=== PATIENT | female | born 1970 | race Caucasian/White ===

== ENCOUNTER → 2020-08-02 | Emergency (ER) | payer MEDICARE ==
[~2020-08-02] VITALS: Ht 165.2 cm; Wt 77.3 kg
[~2020-08-02] MED LIST: AMBIEN 5MG TABLE5 MG PO; KLONOPIN 1MG1 MG PO; LEXAPRO 5MG5 MG PO; MIRAPEX ER3 MG PO; PRILOSEC 20MG20 MG PO
[2020-08-02 14:05] VITALS: BP 121/70; PULSE 85; TEMP 97.6
== END ==
LOC: COL.ER 13:50
DX: M25.561 Pain in right knee (principal); M79.644 Pain in right finger(s); F41.9 Anxiety disorder, unspecified; K21.9 Gastro-esophageal reflux disease without esophagitis; F17.200 Nicotine dependence, unspecified, uncomplicated; Z88.0 Allergy status to penicillin

== ENCOUNTER 2020-11-09 08:44 | Emergency (ER) | payer MEDICARE ==
[~2020-11-09] VITALS: Ht 167.6 cm; Wt 77.3 kg
[2020-11-09 08:48] VITALS: BP 147/84; TEMP 98.1
[2020-11-09] MEDS ORDERED: LAMICTAL200 MG PO ×2 (09:00→09:28)
[2020-11-09] MEDS ORDERED: RISPERDAL2 MG PO ×2 (09:00→09:28)
[2020-11-09 09:38] VITALS: PULSE 64
== END 2020-11-09 09:38 | disposition home or self-care (01) ==
LOC: COL.ER 08:44
DX: F31.9 Bipolar disorder, unspecified (principal); Z88.0 Allergy status to penicillin
CPT/HCPCS: J1885

== ENCOUNTER 2020-11-22 12:34 | Emergency (ER) | payer MEDICARE ==
[~2020-11-22] VITALS: Ht 167.6 cm; Wt 73.6 kg
[~2020-11-22 12:34] MED LIST changes: +LAMICTAL150 MG PO; +LAMICTAL200 MG PO; -LEXAPRO 5MG5 MG PO; +LEXAPRO20 MG PO; +RISPERDAL2 MG PO
[2020-11-22 12:47] VITALS: BP 126/88; TEMP 98.3
[2020-11-22 14:41] LABS: BASO # 0.1 (0.0-0.2); BASO % 0.8 % (0.0-2.0); EOS # 0.1 (0.0-0.7); EOS % 1.1 % (0-4.0); GRAN # 3.1 (1.4-6.5); GRAN % 50.5 % (42.2-75.2); HEMOGLOBIN 10.9 g/dl (12.5-16.0); LYMPH # 2.4 (1.2-3.4); LYMPH % 38.7 % (20.0-51.0); MEAN CELL VOLUME 74 fl (80.0-100.0); MEAN CORPUSCULAR HEMOGLOBIN 22 pg (27.0-31.0); MEAN CORPUSCULAR HGB CONC 30 g/dl (33.0-37.0); MEAN PLATELET VOLUME 9.7 fl (7.4-10.4); MONO # 0.5 (0.1-0.6); MONO % 8.6 % (1.7-9.3); PLATELET COUNT 304 K/mm3 (130-400)
[2020-11-22 14:43] LABS: HEMATOCRIT 36.4 % (37.0-47.0)
[2020-11-22 14:53] LABS: ALANINE AMINOTRANSFERASE 19 U/L (4-34); ALBUMIN 4.4 gm/dL (3.5-5.0); ALKALINE PHOSPHATASE 84 U/L (50-136); ANION GAP 4 mmol/L (7-16); AST,SGOT 34 U/L (15-37); BILIRUBIN,TOTAL 0.3 mg/dL (0.0-1.0); BLOOD UREA NITROGEN 7 mg/dL (7-17); CALCIUM 9.4 mg/dL (8.4-10.2); CARBON DIOXIDE 29 mmol/L (22-30); CHLORIDE 106 mmol/L (98-107); CREATININE, serum 0.64 (0.52-1.25); GLUCOSE 83 mg/dL (74-106); LIPASE 102 U/L (23-300); POTASSIUM 4.8 mmol/L (3.4-5.0); SODIUM 139 mmol/L (137-145); TOTAL PROTEIN 7.4 gm/dL (6.4-8.2)
[2020-11-22 15:06] LABS: TROPONIN-I < 0.012 ng/mL (0.000-0.035)
[2020-11-22 16:20] LABS: COLLECTION METHOD CLEAN CATCH
[2020-11-22 16:28] LABS: PH 7 (5-8); SQUAMOUS EPITHELIAL None Seen /hpf; URINE APPEARANCE Clear; URINE BACTERIA Rare /hpf; URINE BILIRUBIN Negative (NEGATIVE); URINE BLOOD Negative (NEGATIVE); URINE COLOR Yellow; URINE GLUCOSE Negative (NEGATIVE); URINE KETONE Negative (NEGATIVE); URINE LEUKOCYTE ESTERASE Negative (NEGATIVE); URINE NITRATE Negative (NEGATIVE); URINE PROTEIN(semi-quant) Negative (NEGATIVE); URINE RBC 0-2 /hpf; URINE UROBILINOGEN Negative (NEGATIVE)
[2020-11-22 16:47] VITALS: PULSE 93
[2021-01-13] MEDS ORDERED: RESTORIL 1515 MG/CAP PO (15:43)
[2021-01-13] MEDS ORDERED: FERRO-TIME325 MG PO (15:44)
== END 2020-11-22 16:48 | disposition home or self-care (01) ==
LOC: COL.ER 12:34
PROVIDERS: Emergency Medicine
DX: E16.2 Hypoglycemia, unspecified (principal); F32.9 Major depressive disorder, single episode, unspecified; F17.200 Nicotine dependence, unspecified, uncomplicated; Z20.822 Contact with and (suspected) exposure to COVID-19; Z32.02 Encounter for pregnancy test, result negative; Z90.710 Acquired absence of both cervix and uterus; Z90.49 Acquired absence of other specified parts of digestive tract; Z88.0 Allergy status to penicillin

== ENCOUNTER 2021-01-13 17:20 | Emergency (ER) | payer MEDICARE ==
[~2021-01-13] VITALS: Ht 165.1 cm; Wt 74.5 kg
[~2021-01-13 17:20] MED LIST changes: +FERRO-TIME325 MG PO; +RESTORIL 1515 MG/CAP PO
[2021-01-13 17:23] VITALS: TEMP 97.8
[2021-01-13 18:08] LABS: BASO # 0.1 (0.0-0.2); BASO % 0.4 % (0.0-2.0); EOS # 0.2 (0.0-0.7); EOS % 1.1 % (0-4.0); GRAN # 9.5 (1.4-6.5); GRAN % 72.5 % (42.2-75.2); HEMOGLOBIN 15.6 g/dl (12.5-16.0); LYMPH # 2.6 (1.2-3.4); LYMPH % 20.1 % (20.0-51.0); MEAN CELL VOLUME 79 fl (80.0-100.0); MEAN CORPUSCULAR HEMOGLOBIN 22 pg (27.0-31.0); MEAN CORPUSCULAR HGB CONC 28 g/dl (33.0-37.0); MONO # 0.7 (0.1-0.6); MONO % 5.4 % (1.7-9.3); PLATELET COUNT 362 K/mm3 (130-400); RED BLOOD COUNT 7.06 M/mm3 (4.10-5.30); REDCELL DISTRIBUTION WIDTH-CV 20.4 % (11.5-14.5)
[2021-01-13 18:09] LABS: HEMATOCRIT 55.8 % (37.0-47.0)
[2021-01-13 18:19] LABS: CALCIUM 9.7 mg/dL (8.4-10.2); CREATININE, serum 0.85 (0.52-1.25)
[2021-01-13 18:47] VITALS: BP 118/80; PULSE 78
== END 2021-01-13 18:57 | disposition home or self-care (01) ==
LOC: COL.ER 17:20
PROVIDERS: Emergency Medicine
DX: R55 Syncope and collapse (principal); F32.9 Major depressive disorder, single episode, unspecified; G47.00 Insomnia, unspecified; F17.210 Nicotine dependence, cigarettes, uncomplicated; Z90.49 Acquired absence of other specified parts of digestive tract; Z90.710 Acquired absence of both cervix and uterus; Z88.0 Allergy status to penicillin

== ENCOUNTER 2021-01-30 14:00 | Outpatient (RCR) | payer MEDICARE ==
[2021-01-13 15:56] VITALS: BP 160/82; PULSE 88; TEMP 98.6
[2021-01-16 13:04] VITALS: BP 123/80; PULSE 89; TEMP 98.2
--- NOTE | 2021-01-16 13:52 | NUR ---
Pt stating immediatley following infusion that she felt much better with this medicine than she did following initial nulecit infusion. IV DC'd with catheter intact. Upon standing and attempting to walk out, pt reports mild lightheadedness. She is asked to remain for observation for an additional 30 mins to ensure she tolerates med well. She agrees, and has no further complaint. She is escorted out at this time, ambulatory to hospital entrance.
[2021-01-23 14:52] VITALS: BP 111/72; PULSE 76; TEMP 98.1
--- NOTE | 2021-01-23 15:18 | NUR ---
Pt tolerates infusion without issue. IV DC'd she abmulates out from dept with steady gait.
[~2021-01-30] VITALS: Ht 167.6 cm; Wt 75.9 kg
[2021-01-30 14:21] VITALS: BP 108/68; PULSE 81; TEMP 98.5
== END 2021-01-30 15:47 ==
LOC: EUO 14:00
DX: Z79.899 Other long term (current) drug therapy (principal)
CPT/HCPCS: J1756; J2916

== ENCOUNTER 2021-02-15 02:31 | Emergency (ER) | payer MEDICARE ==
[2021-02-15 03:07] VITALS: BP 126/77; PULSE 62; TEMP 97.1
[2021-02-15] MEDS ORDERED: MIRAPEX 1MG PO (03:27)
== END 2021-02-15 03:42 | disposition home or self-care (01) ==
LOC: COL.ER 02:31
DX: F31.9 Bipolar disorder, unspecified (principal); G47.00 Insomnia, unspecified; Z76.0 Encounter for issue of repeat prescription

== ENCOUNTER 2021-04-01 23:03 | Emergency (ER) | payer MEDICARE ==
[~2021-04-01] VITALS: Ht 165.1 cm; Wt 71.4 kg
[~2021-04-01 23:03] MED LIST changes: +MIRAPEX 1MG PO
[2021-04-01 23:23] VITALS: TEMP 97.2
[2021-04-02] MEDS ORDERED: NORCO 325 MG-51 TAB PO (00:48)
[2021-04-02] MEDS ORDERED: CRUTCHES MC (01:03)
[2021-04-02 01:30] VITALS: BP 114/70; PULSE 80
== END 2021-04-02 01:30 | disposition home or self-care (01) ==
LOC: COL.ER 23:03
DX: S82.434A Nondisplaced oblique fracture of shaft of right fibula, initial encounter for closed fracture (principal); S80.211A Abrasion, right knee, initial encounter; S80.212A Abrasion, left knee, initial encounter; F99 Mental disorder, not otherwise specified; Z79.899 Other long term (current) drug therapy; W19.XXXA Unspecified fall, initial encounter

== ENCOUNTER 2021-05-16 10:41 | Day surgery (SDC) | payer MEDICARE ==
[~2021-05-16] VITALS: Ht 165.1 cm; Wt 70.0 kg
[~2021-05-16 10:41] MED LIST changes: +CRUTCHES MC; +NORCO 325 MG-51 TAB PO
[2021-05-16] MEDS ORDERED: MELATONIN5 M1 PO (11:29)
[2021-05-16 12:02] VITALS: BP 124/83; PULSE 76; TEMP 97.3
[2021-05-16 13:05] VITALS: BP 120/71; PULSE 68; TEMP 97
--- NOTE | 2021-05-16 13:05 | NUR ---
PATIENT TRANSPORTED PER CART FROM GI SUITE TO BAY 2 ACCOMPANIED BY STANISLAW RN. PATIENT AMBULATED FROM CART TO CHAIR WITH SLOW STEADY GAIT WITH 1 ASSIST. MONITORS APPLIED. VSS ON ROOM AIR. PATIENT TALKS WITH STAFF. 1310 PATIENT GIVEN JUICE AND FLOR CRACKERS.
[2021-05-16 13:15] VITALS: BP 124/72; PULSE 61
--- NOTE | 2021-05-16 13:23 | NUR ---
VSS ON ROOM AIR. PATIENT TOLERATES FOOD AND DRINK WITHOUT PROBLEMS. DOCTOR IN ROOM AND SPEAKS WITH PATIENT. 1340 DISCHARGE INSTRUCTIONS GIVEN VERBAL AND DISCHARGE PACKET PROVIDED TO PATIENT. QUESTIONS ANSWERED AND PATIENT VOICED UNDERSTANDING. PATIENT CHANGES INTO STREET CLOTHES. 1345 PATIENT DISCHARGE PER WHEEL CHAIR ACCOMPANIED BY AMB RN TO PRIVATE VECHILE DRIVEN BY FAMILY.
[2021-05-16 13:30] VITALS: BP 136/78; PULSE 67
== END 2021-05-16 13:45 | disposition home or self-care (01) ==
LOC: SDCO 10:41
DX: R19.5 Other fecal abnormalities (principal); R11.2 Nausea with vomiting, unspecified; K64.1 Second degree hemorrhoids; D64.9 Anemia, unspecified; R63.0 Anorexia; R19.7 Diarrhea, unspecified; K62.5 Hemorrhage of anus and rectum; K21.9 Gastro-esophageal reflux disease without esophagitis; G47.33 Obstructive sleep apnea (adult) (pediatric); F41.9 Anxiety disorder, unspecified; F31.9 Bipolar disorder, unspecified; Z98.84 Bariatric surgery status; Z20.822 Contact with and (suspected) exposure to COVID-19; Z79.899 Other long term (current) drug therapy; Z87.891 Personal history of nicotine dependence; Z90.710 Acquired absence of both cervix and uterus; Z83.3 Family history of diabetes mellitus; Z82.49 Family history of ischemic heart disease and other diseases of the circulatory system
CPT/HCPCS: J2405; J2704; J7030

== ENCOUNTER 2021-07-21 07:57 | Emergency (ER) | payer MEDICARE ==
[~2021-07-21] VITALS: Ht 165.1 cm; Wt 77.3 kg
[~2021-07-21 07:57] MED LIST changes: +MELATONIN5 M1 PO
[2021-07-21 08:10] VITALS: TEMP 97.7
[2021-07-21] MEDS ORDERED: PERCOCET 325 MG1 TA2 PO (08:31)
[2021-07-21] MEDS ORDERED: CLEOCIN HCL300 MG PO (08:31)
[2021-07-21 08:36] VITALS: BP 137/80; PULSE 61
== END 2021-07-21 08:36 | disposition home or self-care (01) ==
LOC: COL.ER 07:57
DX: K02.9 Dental caries, unspecified (principal); F17.210 Nicotine dependence, cigarettes, uncomplicated; F31.9 Bipolar disorder, unspecified; Z88.0 Allergy status to penicillin; Z79.899 Other long term (current) drug therapy

== ENCOUNTER 2021-09-21 03:43 | Emergency (ER) | payer MEDICARE ==
[~2021-09-21] VITALS: Ht 165.1 cm; Wt 77.3 kg
[~2021-09-21 03:43] MED LIST changes: +CLEOCIN HCL300 MG PO; +PERCOCET 325 MG1 TA2 PO
[2021-09-21 03:58] VITALS: TEMP 98
[2021-09-21 04:36] LABS: STREP SCREEN NEGATIVE
[2021-09-21] MEDS ORDERED: CLEOCIN HCL300 MG PO (05:04)
[2021-09-21 05:14] VITALS: BP 140/82; PULSE 78
== END 2021-09-21 05:14 | disposition home or self-care (01) ==
LOC: COL.ER 03:43
PROVIDERS: Emergency Medicine
DX: J02.9 Acute pharyngitis, unspecified (principal); Z20.822 Contact with and (suspected) exposure to COVID-19; Z88.0 Allergy status to penicillin

== ENCOUNTER 2021-09-30 14:50 | Emergency (ER) | payer MEDICARE ==
[~2021-09-30] VITALS: Ht 165.1 cm; Wt 77.3 kg
[2021-09-30 15:31] VITALS: TEMP 98.6
[2021-09-30 16:45] LABS: BASO % 0.5 % (0.0-2.0); EOS # 0.2 K/mm3 (0.0-0.7); GRAN # 3.5 K/mm3 (1.4-6.5); HEMATOCRIT 41.2 % (37.0-47.0); HEMOGLOBIN 14.1 g/dl (12.5-16.0); MEAN CELL VOLUME 93 fl (80.0-100.0); MEAN CORPUSCULAR HEMOGLOBIN 32 pg (27-31); MEAN CORPUSCULAR HGB CONC 34 g/dl (33.0-37.0); MEAN PLATELET VOLUME 9.6 fl (7.4-10.4); MONO # 0.6 K/mm3 (0.1-0.6); MONO % 7.3 % (1.7-9.3); PLATELET COUNT 260 K/mm3 (130-400); RED BLOOD COUNT 4.43 M/mm3 (4.10-5.30); REDCELL DISTRIBUTION WIDTH-CV 11.8 % (11.5-14.5)
[2021-09-30 17:50] LABS: ALBUMIN 3.6 gm/dL (3.5-5.0); BILIRUBIN,TOTAL 0.4 mg/dL (0.2-1.2); C-REACTIVE PROTEIN 0.02 mg/dL (0.00-0.50); CALCIUM 8.3 mg/dL (8.4-10.2); CREATININE, serum 0.64 mg/dL (0.57-1.11); POTASSIUM 3.6 mmol/L (3.5-4.5); TOTAL PROTEIN 6.1 gm/dL (6.2-8.1)
[2021-09-30 18:32] VITALS: BP 145/75; PULSE 75
== END 2021-09-30 18:34 | disposition home or self-care (01) ==
LOC: COL.ER 14:50
PROVIDERS: Family Medicine
DX: J39.9 Disease of upper respiratory tract, unspecified (principal); F31.9 Bipolar disorder, unspecified; Z20.822 Contact with and (suspected) exposure to COVID-19; Z79.899 Other long term (current) drug therapy
CPT/HCPCS: J2060; J2405; J7120

== ENCOUNTER 2021-10-13 18:55 | Emergency (ER) | payer MEDICARE ==
[~2021-10-13] VITALS: Ht 165.1 cm; Wt 77.3 kg
[2021-10-13 19:35] VITALS: TEMP 98
[2021-10-13 21:11] VITALS: BP 148/65; PULSE 68
== END 2021-10-13 21:11 | disposition home or self-care (01) ==
LOC: COL.ER 18:55
DX: M79.632 Pain in left forearm (principal)

== ENCOUNTER → 2021-10-23 | Outpatient (CLI) | payer MEDICARE | LOC: COL.VAS 11:55 | DX: M79.602 Pain in left arm (principal); M79.89 Other specified soft tissue disorders ==

== ENCOUNTER 2022-01-28 16:33 | Emergency (ER) | payer MEDICARE ==
[~2022-01-28] VITALS: Ht 165.1 cm; Wt 81.8 kg
[2022-01-28 16:48] VITALS: TEMP 97.8
[2022-01-28 17:50] LABS: BASO % 0.6 % (0.0-2.0); EOS # 0.1 K/mm3 (0.0-0.7); EOS % 1.5 % (0.0-4.0); GRAN # 3.2 K/mm3 (1.4-6.5); GRAN % 60.7 % (42.2-75.2); HEMATOCRIT 41.3 % (37.0-47.0); LYMPH # 1.6 K/mm3 (1.2-3.4); LYMPH % 30.8 % (20.0-51.0); MEAN CELL VOLUME 92 fl (80.0-100.0); MEAN CORPUSCULAR HEMOGLOBIN 31 pg (27-31); MEAN CORPUSCULAR HGB CONC 34 g/dl (33.0-37.0); MEAN PLATELET VOLUME 10.3 fl (7.4-10.4); MONO # 0.3 K/mm3 (0.1-0.6); MONO % 6.2 % (1.7-9.3); PLATELET COUNT 154 K/mm3 (130-400); RED BLOOD COUNT 4.47 M/mm3 (4.10-5.30); REDCELL DISTRIBUTION WIDTH-CV 12.5 % (11.5-14.5)
[2022-01-28 18:04] LABS: ALANINE AMINOTRANSFERASE 28 U/L (0-55); ALKALINE PHOSPHATASE 94 U/L (40-150); ANION GAP 12 mmol/L (7-16); AST,SGOT 34 U/L (5-34); BILIRUBIN,TOTAL 0.5 mg/dL (0.2-1.2); BLOOD UREA NITROGEN 9 mg/dL (7-19); CALCIUM 8.5 mg/dL (8.4-10.2); CARBON DIOXIDE 19 mmol/L (22-29); CHLORIDE 110 mmol/L (98-107); CREATININE, serum 0.68 mg/dL (0.57-1.11); GLUCOSE 88 mg/dL (70-99); SODIUM 141 mmol/L (136-145); TOTAL PROTEIN 6.8 gm/dL (6.2-8.1)
[2022-01-28 18:11] LABS: TROPONIN-I < 0.010 ng/mL (0.00-0.033)
[2022-01-28] MEDS ORDERED: TESSALON PERLE200 MG PO (18:28)
[2022-01-28 18:53] VITALS: BP 154/78; PULSE 76
== END 2022-01-28 18:50 | disposition home or self-care (01) ==
LOC: COL.ER 16:33
PROVIDERS: Emergency Medicine
DX: R05.3 Chronic cough (principal); R07.89 Other chest pain; F17.210 Nicotine dependence, cigarettes, uncomplicated

== ENCOUNTER → 2022-03-02 | Outpatient (CLI) | payer MEDICARE ==
[~2022-03-02] MED LIST changes: +TESSALON PERLE200 MG PO
== END ==
LOC: COL.RAD 10:34
DX: M79.602 Pain in left arm (principal); R20.0 Anesthesia of skin; R44.9 Unspecified symptoms and signs involving general sensations and perceptions; M25.522 Pain in left elbow

== ENCOUNTER 2022-04-27 15:26 | Emergency (ER) | payer MEDICARE ==
[~2022-04-27] VITALS: Ht 165.1 cm; Wt 84.1 kg
[2022-04-27 15:34] VITALS: BP 197/82; TEMP 98.4
[2022-04-27 16:14] VITALS: PULSE 82
== END 2022-04-27 16:14 | disposition home or self-care (01) ==
LOC: COL.ER 15:26
DX: L50.9 Urticaria, unspecified (principal); F17.210 Nicotine dependence, cigarettes, uncomplicated

== ENCOUNTER 2023-02-02 14:21 | Emergency (ER) | payer MEDICARE ==
[~2023-02-02] VITALS: Ht 165.1 cm; Wt 90.9 kg
[~2023-02-02 14:21] MED LIST changes: +AMBIEN 5MG TABLE5 MG; +INDERAL 20MG20 MG; +MINIPRESS 1M1 MG/CAP PO; +NEURONTIN300 MG/CAP; +PROAIR HFA0.09 MG/AC IH; +REGLAN 10MG10 MG/TAB PO; +REMERON 15M15 MG/TA1
[2023-02-02 14:31] VITALS: TEMP 97.7
[2023-02-02 15:24] LABS: BASO % 0.5 % (0.0-2.0); EOS # 0.1 K/mm3 (0.0-0.7); EOS % 1.9 % (0.0-4.0); GRAN # 3.3 K/mm3 (1.4-6.5); GRAN % 53.8 % (42.2-75.2); HEMATOCRIT 41.5 % (37.0-47.0); HEMOGLOBIN 14.4 g/dl (12.5-16.0); LYMPH # 2.2 K/mm3 (1.2-3.4); MEAN CELL VOLUME 94 fl (80.0-100.0); MEAN CORPUSCULAR HEMOGLOBIN 32 pg (27-31); MEAN CORPUSCULAR HGB CONC 35 g/dl (33.0-37.0); MEAN PLATELET VOLUME 9.7 fl (7.4-10.4); MONO # 0.5 K/mm3 (0.1-0.6); MONO % 7.6 % (1.7-9.3); PLATELET COUNT 239 K/mm3 (130-400); RED BLOOD COUNT 4.44 M/mm3 (4.10-5.30); REDCELL DISTRIBUTION WIDTH-CV 11.9 % (11.5-14.5)
[2023-02-02 16:20] LABS: ALANINE AMINOTRANSFERASE 24 U/L (0-55); ALBUMIN 3.7 gm/dL (3.5-5.0); ALKALINE PHOSPHATASE 70 U/L (40-150); ANION GAP 12 mmol/L (7-16); AST,SGOT 25 U/L (5-34); BILIRUBIN,TOTAL 0.3 mg/dL (0.2-1.2); BLOOD UREA NITROGEN 11 mg/dL (10-20); CARBON DIOXIDE 20 mmol/L (22-29); CHLORIDE 109 mmol/L (98-107); CREATININE, serum 0.69 mg/dL (0.57-1.11); GLUCOSE 101 mg/dL (70-99); POTASSIUM 3.8 mmol/L (3.5-4.5); SODIUM 141 mmol/L (136-145); TOTAL PROTEIN 6.5 gm/dL (6.2-8.1)
[2023-02-02 16:27] LABS: TROPONIN-I < 0.010 ng/mL (0.00-0.033)
[2023-02-02 17:09] VITALS: BP 119/81; PULSE 75
== END 2023-02-02 17:11 | disposition home or self-care (01) ==
LOC: COL.ER 14:21
PROVIDERS: Personal Emergency Response Attendant
DX: R06.00 Dyspnea, unspecified (principal)

== ENCOUNTER 2024-01-06 | Emergency (ER) | payer MEDICARE ==
[~2024-01-06] VITALS: Ht 165.1 cm; Wt 84.1 kg
[2024-01-06 00:06] VITALS: BP 157/95; PULSE 77; TEMP 98
== END 2024-01-06 02:10 | disposition home or self-care (01) ==
LOC: COL.ER
DX: I10 Essential (primary) hypertension (principal); F17.200 Nicotine dependence, unspecified, uncomplicated